=== PATIENT | female | born 1980 | race Caucasian/White ===

== ENCOUNTER → 2018-06-20 | Outpatient (CLI) | payer MEDICARE, OTHER | END | disposition home or self-care (01) | LOC: NUC 11:01 | PROVIDERS: ATTEND Internal Medicine Gastroenterology | DX: R11.10 Vomiting, unspecified (principal) | CPT/HCPCS: 78264; A9541 ==

== ENCOUNTER 2018-07-03 11:41 | Day surgery (SDC) | payer MEDICARE, OTHER ==
[~2018-07-03] VITALS: Ht 152.4 cm; Wt 65.7 kg
[2018-07-03 12:41] VITALS: Ht 152.4 cm; Wt 65.7 kg
[2018-07-03 13:21] VITALS: BP 119/77; PULSE 53; RESP 18
--- NOTE | 2018-07-03 13:23 | PREAC ---
Date/Time of Note Date/Time of Note DATE: 07/03/18 TIME: 13:21 Anesthesia Eval and Record Evaluation Time Pre-Procedure Interview DATE: 07/03/18 TIME: 13:21 Age 38 Sex female NPO: 8 hrs Preoperative diagnosis Vomiting Planned procedure EGD Past Medical History Past Medical History: Includes Neuro: Other (Hx of Crainiotomy, R. Hemiparesis, hx of Brain Aneurysm) Recreational drugs: Marijuana (Daily) Surgery & Anesthesia Issues No known issue Meds Anticoagulation: No Beta Cierra within 24 hr: No Reason Beta Cierra not given: Pt. not on B-Cierra Reported Medications [None] No Conflict Check 07/03/18 Meds reviewed: Yes Allergies Coded Allergies: No Known Allergy (Unverified , 10/14/15) Allergies Reviewed: Yes Labs/Studies Labs Reviewed: Reviewed by anesthesiologist test: Negative Studies: ECG (n/a), CXR (n/a) Pre-procedure Exam Airway: Adequate mouth opening, Adequate thyromental dist Mallampati: Mallampati II Teeth: Normal Lung: Normal Heart: Normal ASA Physical Status ASA physical status: 3 Emergency: None Planned Anesthetic General/MAC: MAC Planned Pain Management Parenteral pain med Pre-operative Attestations Prior to commencing anesthesia and surgery, the patient was re-evaluated, there was verification of: *The patient's identity *The results of appropriate recent lab work and preoperative vital signs *The above evaluation not changing prior to induction *Anesthetic plan, risk benefits, alternative and complications discussed with patient/family; questions answered; patient/family understands, accepts and wishes to proceed. ERIC BLOUNT MD Jul 03, 2018 13:23
[2018-07-03 13:35] VITALS: BP 89/53; PULSE 74; RESP 18
[2018-07-03] MEDS ORDERED: PROPOFOL 40 ML ONE (13:38)
--- NOTE | 2018-07-03 13:42 | PAC ---
Date/Time of Note Date/Time of Note DATE: 07/03/18 TIME: 13:42 Post-Anesthesia Notes Post-Anesthesia Note Last documented vital signs T: 98.0 Activity: WNL Respiratory function: WNL Cardiovascular function: WNL Mental status: Baseline Pain reasonably controlled: Yes Hydration appropriate: Yes Nausea/Vomiting absent: Yes ERIC BLOUNT MD Jul 03, 2018 13:42
[2018-07-03 13:50] VITALS: BP 120/59; PULSE 56; RESP 18
[2018-07-03 14:05] VITALS: BP 128/62; PULSE 74; RESP 17
--- NOTE | 2018-07-04 14:09 | CONS ---
DATE OF ADMISSION: 07/03/2018 DATE OF CONSULTATION: PATIENT NAME: NICHELLE GUNTER TYPE OF CONSULTATION: Preoperative gastroenterology. Dear Dr. Adorno: I thank you very much for this kind referral. HISTORY OF PRESENT ILLNESS: Ms. Nichelle Gunter is a 38-year-old female patient who has been referr ed to me for further evaluation of nausea and vomiting. The patient has been taking Zofran. She tri ed omeprazole and Zantac without any help. No past history of peptic ulcer disease. Not taking nons teroidal anti-inflammatory agents. Appetite is somewhat poor, but there is no significant weight los s. No history of gallstones or liver disease. Denies any change in the bowel habit or rectal bleedi ng. No past history of inflammatory bowel disease. Not a hypertensive or diabetic. No heart diseas e, lung problem or kidney disease. PAST SURGICAL HISTORY: She is status post brain aneurysm rupture with right hemiparesis. She is sta tus post craniotomy. SOCIAL HISTORY: She does not smoke cigarettes. She smokes marijuana. No alcohol abuse. FAMILY HISTORY: No family history of gastrointestinal tract neoplasm. ALLERGIES: NO DRUG ALLERGIES. MEDICATION: Zofran 4 mg q.i.d. p.r.n. PHYSICAL EXAMINATION: VITAL SIGNS: She is 5 feet tall and weighs 132 pounds, BMI 25, blood pressure 124/72. HEART: Normal heart sounds. LUNGS: Clear. ABDOMEN: Soft. No masses. Normal bowel sounds. NEUROLOGIC: Normal. IMPRESSION: 1. Nausea and vomiting. 2. The patient tried omeprazole and Zantac without any help. 3. She is taking Zofran p.r.n. for vomiting. 4. The patient smokes marijuana. 5. Marijuana may be the cause for nausea or vomiting. 6. Status post craniotomy for brain aneurysm with bleeding. 7. The patient has right hemiparesis. PLAN: 1. The patient was strongly advised to stop using marijuana which may be responsible for the nausea or vomiting. 2. Endoscopic examination for further evaluation. 3. Nuclear medicine solid gastric emptying study to rule out gastroparesis. 4. Because of the marijuana use, she will be resistant to narcotics and she needs monitored anesthes ia care. The procedure and possible complications are well explained to the patient. She understands and cons ents to the procedure. I thank you once again. With warmest personal regards, Dictated By: SENG SIDDIQUI/JERROD Conf#: [id number] DID#: [id number]
== END 2018-07-03 15:04 | disposition home or self-care (01) ==
LOC: GIL 11:41
PROVIDERS: ATTEND Internal Medicine Gastroenterology
DX: K29.30 Chronic superficial gastritis without bleeding (principal); G81.91 Hemiplegia, unspecified affecting right dominant side
CPT/HCPCS: 84703; 88305; 88312